=== PATIENT | female | born 1950 | race African-American/Black ===

== ENCOUNTER 2019-06-01 15:17 | Inpatient (IN) ==
[2019-06-01] MEDS ORDERED: Ipratropium/Albuterol Neb 3 ML IH PRN (15:27)
[2019-06-01] MEDS ORDERED: Ondansetron ODT 4 MG TAB.RAPDIS PO PRN (15:27)
[2019-06-01] MEDS ORDERED: Menthol 9.1 MG LOZENGE PO PRN (15:27)
[2019-06-01] MEDS: *HR* FentaNYL PATCH 75 MCG PATCH TD SCH (18:52)
[2019-06-01] MEDS: Acetaminophen 325 MG TABLET PO PRN (18:53)
[2019-06-01] MEDS: Magnesium Oxide 400 MG TABLET PO SCH (21:58)
[2019-06-01] MEDS: Mirtazapine 15 MG TABLET PO SCH (21:58)
[2019-06-01] MEDS: Gabapentin 300 MG CAPSULE PO SCH (21:58)
[2019-06-02 07:06] LABS: Basophils % 0.5 %; Eosinophils # 0.3 K/mcL (0.0-0.6); Eosinophils % 4.7 %; Hematocrit 26.3 % (35.3-44.9); Hemoglobin 8.3 g/dL (11.5-15.4); Lymphocytes # 0.7 K/mcL (0.6-4.6); Mean Corpuscular HGB Conc 31.6 g/dL (31.6-35.5); Mean Corpuscular Hemoglobin 29.5 pg (28.0-33.3); Mean Corpuscular Volume 93.6 fL (83.0-100.0); Mean Platelet Volume 10.3 fL (9.4-12.4); Monocytes # 0.5 K/mcL (0.0-1.3); Monocytes % 7.7 %; Neutrophils # 4.5 K/mcL (1.6-8.9); Nucleated Red Blood Cells 0.5 /100 WBC (0); Platelet Count 143 K/mcL (140-400); Red Blood Count 2.81 M/mcL (3.82-4.97); Segmented Neutrophils % 72.1 %; White Blood Count 6.2 K/mcL (4.3-11.1)
[2019-06-02 07:29] LABS: BUN/Creatinine Ratio 26 (6-26); Blood Urea Nitrogen 21 mg/dL (8-23); Calcium 7.7 mg/dL (8.6-10.3); Carbon Dioxide 27 mEq/L (23-29); Chloride 101 mEq/L (98-107); Glucose 88 mg/dL (70-105); Osmolality,Calculated 284 (280-300); Potassium 4.3 mEq/L (3.5-5.1); Sodium 136 mEq/L (136-145); eGFR For African Americans > 60 (> 60); eGFR For Non-African Americans > 60 (> 60)
[2019-06-02] MEDS: Acetaminophen 325 MG TABLET PO PRN ×2 (10:20→19:54)
[2019-06-02] MEDS: Gabapentin 300 MG CAPSULE PO SCH ×2 (10:20→19:52)
[2019-06-02] MEDS: Magnesium Oxide 400 MG TABLET PO SCH ×2 (10:20→19:52)
[2019-06-02] MEDS: Mirtazapine 15 MG TABLET PO SCH (19:52)
[2019-06-03] MEDS: *HR* OxyCODONE Immed Rel 5 MG TABLET PO PRN ×2 (10:18→15:16)
[2019-06-03] MEDS: Gabapentin 300 MG CAPSULE PO SCH ×2 (10:18→20:28)
[2019-06-03] MEDS: Magnesium Oxide 400 MG TABLET PO SCH ×2 (10:20→20:29)
[2019-06-03] MEDS: Acetaminophen 325 MG TABLET PO PRN ×2 (13:07→20:29)
[2019-06-03] MEDS: Mirtazapine 15 MG TABLET PO SCH (20:29)
[2019-06-04 06:51] VITALS: BP 94/60
[2019-06-04] MEDS: *HR* OxyCODONE Immed Rel 5 MG TABLET PO PRN ×3 (08:29→18:26)
[2019-06-04] MEDS: Magnesium Oxide 400 MG TABLET PO SCH (08:29)
[2019-06-04] MEDS: Gabapentin 300 MG CAPSULE PO SCH (08:30)
[2019-06-04] MEDS: Acetaminophen 325 MG TABLET PO PRN (11:58)
[2019-06-04] MEDS ORDERED: *HR* FentaNYL PATCH 100 MCG PATCH TD SCH (16:00)
[2019-06-04] MEDS: *HR* FentaNYL PATCH 75 MCG PATCH TD SCH (16:06)
== END 2019-06-04 18:51 | disposition other institution (70) | DRG 945 ==
LOC: INPPIK 15:34
PROVIDERS: ADMIT Family Medicine; ATTEND Family Medicine

== ENCOUNTER 2019-06-14 14:41 | Inpatient (IN) ==
[2019-06-14] MEDS ORDERED: Morphine Sulfate Immed Rel 15 MG TABLET PO PRN (15:31)
[2019-06-14] MEDS ORDERED: *HR* Methadone 10 MG TABLET PO SCH (17:00)
[2019-06-14] MEDS: OLANZapine 10 MG TAB.RAPDIS PO SCH (20:06)
[2019-06-14] MEDS: Acetaminophen 325 MG TABLET PO SCH (20:06)
[2019-06-14] MEDS: Melatonin 3 MG TABLET PO SCH (20:07)
[2019-06-14] MEDS ORDERED: dexAMETHasone 4 MG TABLET PO SCH (21:00)
[2019-06-14] MEDS: *HR* Methadone 10 MG TABLET PO SCH (21:43)
[2019-06-15] MEDS: *HR* Methadone 10 MG TABLET PO SCH ×3 (06:30→21:18)
[2019-06-15] MEDS: Acetaminophen 325 MG TABLET PO SCH ×3 (08:14→20:09)
[2019-06-15] MEDS: Methylphenidate HCl 5 MG TABLET PO SCH ×2 (08:15→13:34)
[2019-06-15] MEDS: dexAMETHasone 4 MG TABLET PO SCH ×2 (08:15→14:18)
[2019-06-15] MEDS ORDERED: Morphine Sulfate Oral CONC 10 MG/0.5 ML ORAL.SYG PO PRN (08:21)
[2019-06-15] MEDS: Ondansetron ODT 4 MG TAB.RAPDIS PO PRN (09:21)
[2019-06-15] MEDS: Morphine Sulfate Oral CONC 10 MG/0.5 ML ORAL.SYG PO PRN ×2 (09:26→17:40)
[2019-06-15 13:51] LABS: Basophils % 0.1 %; Eosinophils % 0.1 %; Hematocrit 26.6 % (35.3-44.9); Hemoglobin 8.5 g/dL (11.5-15.4); Immature Granulocytes % 3.7 % (0-4); Lymphocytes # 0.2 K/mcL (0.6-4.6); Lymphocytes % 1.9 %; Mean Corpuscular Hemoglobin 28.2 pg (28.0-33.3); Mean Corpuscular Volume 88.4 fL (83.0-100.0); Mean Platelet Volume 10.8 fL (9.4-12.4); Monocytes # 0.5 K/mcL (0.0-1.3); Neutrophils # 9.2 K/mcL (1.6-8.9); Nucleated Red Blood Cells 0.3 /100 WBC (0); Platelet Count 144 K/mcL (140-400); Red Blood Count 3.01 M/mcL (3.82-4.97); Red Cell Distribution Width 17.6 % (11.5-14.5); Segmented Neutrophils % 89.2 %; White Blood Count 10.3 K/mcL (4.3-11.1)
[2019-06-15 14:05] LABS: BUN/Creatinine Ratio 31 (6-26); Blood Urea Nitrogen 15 mg/dL (8-23); Calcium 7.4 mg/dL (8.6-10.3); Carbon Dioxide 23 mEq/L (23-29); Chloride 107 mEq/L (98-107); Glucose 115 mg/dL (70-105); Osmolality,Calculated 286 (280-300); Potassium 3.4 mEq/L (3.5-5.1); Sodium 137 mEq/L (136-145); eGFR For African Americans > 60 (> 60); eGFR For Non-African Americans > 60 (> 60)
[2019-06-15] MEDS: Melatonin 3 MG TABLET PO SCH (20:09)
[2019-06-15] MEDS: OLANZapine 10 MG TAB.RAPDIS PO SCH (20:09)
[2019-06-16] MEDS: *HR* Methadone 10 MG TABLET PO SCH ×3 (06:45→22:09)
[2019-06-16] MEDS: Methylphenidate HCl 5 MG TABLET PO SCH ×2 (09:10→13:02)
[2019-06-16] MEDS: Acetaminophen 325 MG TABLET PO SCH ×3 (09:10→22:07)
[2019-06-16] MEDS: dexAMETHasone 4 MG TABLET PO SCH ×2 (09:12→13:02)
[2019-06-16 16:39] LABS: Bilirubin,Urine Small (Negative); Blood,Urine Large (Negative); Clarity,Urine Cloudy (Clear); Color,Urine Amber (Yellow); Glucose,Urine (UA) Normal (Normal); Ketones,Urine Negative (Negative); Leukocyte Esterase,Urine Moderate (Negative); Nitrite,Urine Positive (Negative); Protein,Urine 100 mg/dL (Neg-Trace); Specific Gravity,Urine 1.025 (1.010-1.025); Urobilinogen,Urine Normal (Normal)
[2019-06-16 16:47] LABS: Bacteria,Urine Moderate per hpf (None-Few); Mucus,Urine Few per lpf (Few); RBC,Urine TNTC per hpf (0-3); Squamous Epithelial Cell,Urine Few per lpf (None-Few); WBC,Urine TNTC per hpf (0-3); Yeast,Urine Few per hpf (None Seen)
[2019-06-16 18:27] LABS: Hematocrit 25.3 % (35.3-44.9); Hemoglobin 8.1 g/dL (11.5-15.4)
[2019-06-16] MEDS: Melatonin 3 MG TABLET PO SCH (22:07)
[2019-06-16] MEDS: OLANZapine 10 MG TAB.RAPDIS PO SCH (22:09)
[2019-06-17] MEDS: *HR* Methadone 10 MG TABLET PO SCH ×3 (05:09→21:38)
[2019-06-17] MEDS ORDERED: cefTRIAXone 1,000 MG in Water for inj. (sterile) 10 ML IVPB SCH (09:00)
[2019-06-17] MEDS: Acetaminophen 325 MG TABLET PO SCH ×3 (09:01→21:38)
[2019-06-17] MEDS: dexAMETHasone 4 MG TABLET PO SCH ×2 (09:07→14:58)
[2019-06-17] MEDS: Methylphenidate HCl 5 MG TABLET PO SCH ×2 (09:07→11:54)
[2019-06-17] MEDS ORDERED: 0.9 % Sodium Chloride 1,000 ML IVC SCH (10:30)
[2019-06-17] MEDS: Ondansetron ODT 4 MG TAB.RAPDIS PO PRN (12:13)
[2019-06-17] MEDS ORDERED: *HR* Promethazine 25 MG/ML VIAL IVP PRN (14:00)
[2019-06-17] MEDS: Morphine Sulfate Oral CONC 10 MG/0.5 ML ORAL.SYG PO PRN (17:47)
[2019-06-17] MEDS: Melatonin 3 MG TABLET PO SCH (21:38)
[2019-06-17] MEDS: OLANZapine 10 MG TAB.RAPDIS PO SCH (21:39)
[2019-06-18] MEDS: *HR* Methadone 10 MG TABLET PO SCH ×3 (05:32→22:07)
[2019-06-18 05:46] LABS: Hematocrit 26.2 % (35.3-44.9); Hemoglobin 8.1 g/dL (11.5-15.4); Mean Corpuscular HGB Conc 30.9 g/dL (31.6-35.5); Mean Corpuscular Hemoglobin 27.8 pg (28.0-33.3); Mean Platelet Volume 10.3 fL (9.4-12.4); Red Blood Count 2.91 M/mcL (3.82-4.97); Red Cell Distribution Width 18.2 % (11.5-14.5); White Blood Count 9.9 K/mcL (4.3-11.1)
[2019-06-18 05:52] LABS: Platelet Count 89 K/mcL (140-400)
[2019-06-18] MEDS: Acetaminophen 325 MG TABLET PO SCH ×3 (09:04→22:08)
[2019-06-18] MEDS: cefTRIAXone 1,000 MG in 0.9 % Sodium Chloride Mini Bag 100 ML IVPB SCH (09:17)
[2019-06-18] MEDS: dexAMETHasone 4 MG TABLET PO SCH ×2 (09:31→14:26)
[2019-06-18] MEDS: Methylphenidate HCl 5 MG TABLET PO SCH ×2 (09:31→12:31)
[2019-06-18] MEDS: Melatonin 3 MG TABLET PO SCH (22:08)
[2019-06-18] MEDS: OLANZapine 10 MG TAB.RAPDIS PO SCH (22:08)
[2019-06-18] MEDS: Ondansetron ODT 4 MG TAB.RAPDIS PO PRN (22:36)
[2019-06-19] MEDS: *HR* Methadone 10 MG TABLET PO SCH ×3 (06:36→22:33)
[2019-06-19] MEDS: cefTRIAXone 1,000 MG in 0.9 % Sodium Chloride Mini Bag 100 ML IVPB SCH (09:31)
[2019-06-19] MEDS: Morphine Sulfate Oral CONC 10 MG/0.5 ML ORAL.SYG PO PRN ×2 (09:32→14:49)
[2019-06-19] MEDS: Acetaminophen 325 MG TABLET PO SCH ×3 (09:33→22:31)
[2019-06-19] MEDS: Methylphenidate HCl 5 MG TABLET PO SCH ×2 (09:34→12:19)
[2019-06-19] MEDS: dexAMETHasone 4 MG TABLET PO SCH ×2 (09:34→14:44)
[2019-06-19] MEDS: OLANZapine 10 MG TAB.RAPDIS PO SCH (22:31)
[2019-06-19] MEDS: Melatonin 3 MG TABLET PO SCH (22:33)
[2019-06-20] MEDS: *HR* Methadone 10 MG TABLET PO SCH ×3 (05:47→21:28)
[2019-06-20] MEDS: Methylphenidate HCl 5 MG TABLET PO SCH ×2 (09:30→13:16)
[2019-06-20] MEDS: cefTRIAXone 1,000 MG in 0.9 % Sodium Chloride Mini Bag 100 ML IVPB SCH (09:30)
[2019-06-20] MEDS: dexAMETHasone 4 MG TABLET PO SCH ×2 (09:31→13:16)
[2019-06-20] MEDS: Acetaminophen 325 MG TABLET PO SCH ×3 (09:31→21:27)
[2019-06-20] MEDS: Morphine Sulfate Oral CONC 10 MG/0.5 ML ORAL.SYG PO PRN ×2 (09:35→13:16)
[2019-06-20] MEDS: Melatonin 3 MG TABLET PO SCH (21:27)
[2019-06-20] MEDS: OLANZapine 10 MG TAB.RAPDIS PO SCH (21:28)
[2019-06-21] MEDS: *HR* Methadone 10 MG TABLET PO SCH ×3 (06:39→21:50)
[2019-06-21] MEDS: Acetaminophen 325 MG TABLET PO SCH ×3 (09:03→21:49)
[2019-06-21] MEDS: Methylphenidate HCl 5 MG TABLET PO SCH ×2 (09:03→12:30)
[2019-06-21] MEDS: cefTRIAXone 1,000 MG in 0.9 % Sodium Chloride Mini Bag 100 ML IVPB SCH (09:04)
[2019-06-21] MEDS: dexAMETHasone 4 MG TABLET PO SCH ×2 (12:31→19:38)
[2019-06-21] MEDS: Melatonin 3 MG TABLET PO SCH (21:49)
[2019-06-21] MEDS: OLANZapine 10 MG TAB.RAPDIS PO SCH (21:50)
[2019-06-22] MEDS: *HR* Methadone 10 MG TABLET PO SCH ×3 (05:54→21:24)
[2019-06-22] MEDS: Methylphenidate HCl 5 MG TABLET PO SCH ×2 (08:08→13:14)
[2019-06-22] MEDS: Acetaminophen 325 MG TABLET PO SCH ×3 (08:08→21:23)
[2019-06-22] MEDS: dexAMETHasone 4 MG TABLET PO SCH ×2 (08:08→16:09)
[2019-06-22] MEDS: cefTRIAXone 1,000 MG in 0.9 % Sodium Chloride Mini Bag 100 ML IVPB SCH (08:09)
[2019-06-22] MEDS: OLANZapine 10 MG TAB.RAPDIS PO SCH (21:22)
[2019-06-22] MEDS: Melatonin 3 MG TABLET PO SCH (21:22)
[2019-06-23] MEDS: *HR* Methadone 10 MG TABLET PO SCH ×3 (06:17→20:17)
[2019-06-23] MEDS: cefTRIAXone 1,000 MG in 0.9 % Sodium Chloride Mini Bag 100 ML IVPB SCH (09:59)
[2019-06-23] MEDS: Methylphenidate HCl 5 MG TABLET PO SCH ×2 (09:59→13:52)
[2019-06-23] MEDS: dexAMETHasone 4 MG TABLET PO SCH ×2 (10:00→13:51)
[2019-06-23] MEDS: Acetaminophen 325 MG TABLET PO SCH ×3 (10:00→20:17)
[2019-06-23] MEDS: Morphine Sulfate Oral CONC 10 MG/0.5 ML ORAL.SYG PO PRN ×2 (10:08→20:16)
[2019-06-23] MEDS: Melatonin 3 MG TABLET PO SCH (20:17)
[2019-06-23] MEDS: OLANZapine 10 MG TAB.RAPDIS PO SCH (20:17)
[2019-06-24] MEDS: cefTRIAXone 1,000 MG in 0.9 % Sodium Chloride Mini Bag 100 ML IVPB SCH (09:01)
[2019-06-24] MEDS: Methylphenidate HCl 5 MG TABLET PO SCH ×2 (09:03→12:59)
[2019-06-24] MEDS: *HR* Methadone 10 MG TABLET PO SCH ×3 (09:03→22:06)
[2019-06-24] MEDS: Acetaminophen 325 MG TABLET PO SCH ×3 (09:03→22:00)
[2019-06-24] MEDS: dexAMETHasone 4 MG TABLET PO SCH ×2 (09:11→15:03)
[2019-06-24] MEDS: Melatonin 3 MG TABLET PO SCH (21:59)
[2019-06-24] MEDS: OLANZapine 10 MG TAB.RAPDIS PO SCH (21:59)
[2019-06-25] MEDS: *HR* Methadone 10 MG TABLET PO SCH ×3 (06:53→21:18)
[2019-06-25 07:10] LABS: Hematocrit 27.4 % (35.3-44.9); Hemoglobin 8.6 g/dL (11.5-15.4); Mean Corpuscular HGB Conc 31.4 g/dL (31.6-35.5); Mean Corpuscular Hemoglobin 28.6 pg (28.0-33.3); Mean Platelet Volume 10.7 fL (9.4-12.4); Red Blood Count 3.01 M/mcL (3.82-4.97); Red Cell Distribution Width 19.8 % (11.5-14.5); White Blood Count 10.8 K/mcL (4.3-11.1)
[2019-06-25 07:45] LABS: BUN/Creatinine Ratio 26 (6-26); Blood Urea Nitrogen 15 mg/dL (8-23); Calcium 7.6 mg/dL (8.6-10.3); Carbon Dioxide 28 mEq/L (23-29); Chloride 105 mEq/L (98-107); Glucose 89 mg/dL (70-105); Osmolality,Calculated 288 (280-300); Potassium 3.4 mEq/L (3.5-5.1); Sodium 139 mEq/L (136-145); eGFR For African Americans > 60 (> 60); eGFR For Non-African Americans > 60 (> 60)
[2019-06-25 07:56] LABS: Platelet Count 91 K/mcL (140-400)
[2019-06-25] MEDS ORDERED: Potassium Chloride Elixir 20 MEQ/15 ML UDC PO ONE (09:44)
[2019-06-25] MEDS: cefTRIAXone 1,000 MG in 0.9 % Sodium Chloride Mini Bag 100 ML IVPB SCH (10:02)
[2019-06-25] MEDS: Methylphenidate HCl 5 MG TABLET PO SCH ×2 (10:03→12:42)
[2019-06-25] MEDS: Acetaminophen 325 MG TABLET PO SCH ×3 (10:03→21:18)
[2019-06-25] MEDS: dexAMETHasone 4 MG TABLET PO SCH ×2 (10:08→16:17)
[2019-06-25] MEDS: Melatonin 3 MG TABLET PO SCH (21:18)
[2019-06-25] MEDS: OLANZapine 10 MG TAB.RAPDIS PO SCH (21:18)
[2019-06-26] MEDS: *HR* Methadone 10 MG TABLET PO SCH ×3 (06:43→20:28)
[2019-06-26] MEDS: cefTRIAXone 1,000 MG in 0.9 % Sodium Chloride Mini Bag 100 ML IVPB SCH (08:08)
[2019-06-26] MEDS: Acetaminophen 325 MG TABLET PO SCH ×3 (08:09→20:29)
[2019-06-26] MEDS: dexAMETHasone 4 MG TABLET PO SCH ×2 (08:09→14:29)
[2019-06-26] MEDS: Methylphenidate HCl 5 MG TABLET PO SCH ×2 (08:16→11:39)
[2019-06-26] MEDS: Melatonin 3 MG TABLET PO SCH (20:29)
[2019-06-26] MEDS: OLANZapine 10 MG TAB.RAPDIS PO SCH (20:29)
[2019-06-27] MEDS: *HR* Methadone 10 MG TABLET PO SCH ×3 (05:57→21:25)
[2019-06-27] MEDS: cefTRIAXone 1,000 MG in 0.9 % Sodium Chloride Mini Bag 100 ML IVPB SCH (08:10)
[2019-06-27] MEDS: Methylphenidate HCl 5 MG TABLET PO SCH ×2 (08:10→12:23)
[2019-06-27] MEDS: Acetaminophen 325 MG TABLET PO SCH ×3 (08:11→21:25)
[2019-06-27] MEDS: dexAMETHasone 4 MG TABLET PO SCH ×2 (08:11→14:42)
[2019-06-27] MEDS: Sennosides 8.6 MG TABLET PO PRN (08:18)
[2019-06-27] MEDS: Melatonin 3 MG TABLET PO SCH (21:24)
[2019-06-27] MEDS: OLANZapine 10 MG TAB.RAPDIS PO SCH (21:25)
[2019-06-28] MEDS: *HR* Methadone 10 MG TABLET PO SCH ×3 (05:36→21:20)
[2019-06-28] MEDS ORDERED: Bisacodyl 10 MG RECTAL SUPPOSITORY RC PRN (07:28)
[2019-06-28] MEDS: cefTRIAXone 1,000 MG in 0.9 % Sodium Chloride Mini Bag 100 ML IVPB SCH (08:12)
[2019-06-28] MEDS: Megestrol Acetate 400 MG/10 ML UDC PO SCH (08:13)
[2019-06-28] MEDS: Acetaminophen 325 MG TABLET PO SCH ×3 (08:15→21:20)
[2019-06-28] MEDS: dexAMETHasone 4 MG TABLET PO SCH ×2 (08:16→16:43)
[2019-06-28] MEDS: Methylphenidate HCl 5 MG TABLET PO SCH ×2 (08:16→13:11)
[2019-06-28] MEDS: OLANZapine 10 MG TAB.RAPDIS PO SCH (21:19)
[2019-06-28] MEDS: Melatonin 3 MG TABLET PO SCH (21:20)
[2019-06-29] MEDS: cefTRIAXone 1,000 MG in 0.9 % Sodium Chloride Mini Bag 100 ML IVPB SCH (08:21)
[2019-06-29] MEDS: Megestrol Acetate 400 MG/10 ML UDC PO SCH (08:21)
[2019-06-29] MEDS: Acetaminophen 325 MG TABLET PO SCH ×3 (08:22→21:10)
[2019-06-29] MEDS: Methylphenidate HCl 5 MG TABLET PO SCH ×2 (11:25→13:16)
[2019-06-29] MEDS: dexAMETHasone 4 MG TABLET PO SCH ×2 (11:25→17:57)
[2019-06-29] MEDS: *HR* Methadone 10 MG TABLET PO SCH ×2 (13:17→21:10)
[2019-06-29] MEDS: OLANZapine 10 MG TAB.RAPDIS PO SCH (21:10)
[2019-06-29] MEDS: Melatonin 3 MG TABLET PO SCH (21:10)
[2019-06-30] MEDS: *HR* Methadone 10 MG TABLET PO SCH ×3 (06:37→21:09)
[2019-06-30 06:56] LABS: Hematocrit 27.8 % (35.3-44.9); Hemoglobin 8.7 g/dL (11.5-15.4); Mean Corpuscular HGB Conc 31.3 g/dL (31.6-35.5); Mean Corpuscular Hemoglobin 29.2 pg (28.0-33.3); Mean Corpuscular Volume 93.3 fL (83.0-100.0); Red Blood Count 2.98 M/mcL (3.82-4.97); Red Cell Distribution Width 20.7 % (11.5-14.5)
[2019-06-30 07:19] LABS: Platelet Count 72 K/mcL (140-400)
[2019-06-30 07:52] LABS: BUN/Creatinine Ratio 35 (6-26); Blood Urea Nitrogen 19 mg/dL (8-23); Calcium 7.7 mg/dL (8.6-10.3); Carbon Dioxide 27 mEq/L (23-29); Chloride 106 mEq/L (98-107); Glucose 84 mg/dL (70-105); Osmolality,Calculated 295 (280-300); Potassium 3.4 mEq/L (3.5-5.1); Sodium 142 mEq/L (136-145); eGFR For African Americans > 60 (> 60); eGFR For Non-African Americans > 60 (> 60)
[2019-06-30] MEDS: ALPRAZolam 0.25 MG TABLET PO SCH (08:59)
[2019-06-30] MEDS: Megestrol Acetate 400 MG/10 ML UDC PO SCH (08:59)
[2019-06-30] MEDS: Methylphenidate HCl 5 MG TABLET PO SCH ×2 (08:59→12:28)
[2019-06-30] MEDS: Acetaminophen 325 MG TABLET PO SCH ×3 (08:59→21:10)
[2019-06-30] MEDS: dexAMETHasone 4 MG TABLET PO SCH ×2 (09:03→14:08)
[2019-06-30] MEDS: OLANZapine 10 MG TAB.RAPDIS PO SCH (21:10)
[2019-06-30] MEDS: Melatonin 3 MG TABLET PO SCH (21:10)
[2019-07-01] MEDS: *HR* Methadone 10 MG TABLET PO SCH ×3 (06:06→21:21)
[2019-07-01] MEDS: Megestrol Acetate 400 MG/10 ML UDC PO SCH (09:39)
[2019-07-01] MEDS: dexAMETHasone 4 MG TABLET PO SCH ×2 (09:39→13:31)
[2019-07-01] MEDS: Acetaminophen 325 MG TABLET PO SCH ×3 (09:40→21:21)
[2019-07-01] MEDS: Methylphenidate HCl 5 MG TABLET PO SCH ×2 (09:40→13:31)
[2019-07-01] MEDS: ALPRAZolam 0.25 MG TABLET PO SCH (09:48)
[2019-07-01] MEDS: Sennosides 8.6 MG TABLET PO PRN (09:48)
[2019-07-01] MEDS: Melatonin 3 MG TABLET PO SCH (21:22)
[2019-07-01] MEDS: OLANZapine 10 MG TAB.RAPDIS PO SCH (21:22)
[2019-07-02] MEDS: *HR* Methadone 10 MG TABLET PO SCH ×3 (05:55→22:48)
[2019-07-02] MEDS: Acetaminophen 325 MG TABLET PO SCH ×3 (08:11→21:03)
[2019-07-02] MEDS: Methylphenidate HCl 5 MG TABLET PO SCH ×2 (08:11→12:22)
[2019-07-02] MEDS: ALPRAZolam 0.25 MG TABLET PO SCH (08:12)
[2019-07-02] MEDS: Megestrol Acetate 400 MG/10 ML UDC PO SCH (08:12)
[2019-07-02] MEDS: Sennosides 8.6 MG TABLET PO PRN (08:12)
[2019-07-02] MEDS: dexAMETHasone 4 MG TABLET PO SCH ×2 (08:15→16:22)
[2019-07-02] MEDS: Melatonin 3 MG TABLET PO SCH (21:03)
[2019-07-02] MEDS: OLANZapine 10 MG TAB.RAPDIS PO SCH (21:03)
[2019-07-03] MEDS: *HR* Methadone 10 MG TABLET PO SCH ×3 (05:26→21:26)
[2019-07-03] MEDS: Acetaminophen 325 MG TABLET PO SCH ×3 (09:53→21:26)
[2019-07-03] MEDS: dexAMETHasone 4 MG TABLET PO SCH ×2 (09:55→19:25)
[2019-07-03] MEDS: Methylphenidate HCl 5 MG TABLET PO SCH ×2 (09:55→13:44)
[2019-07-03] MEDS: Megestrol Acetate 400 MG/10 ML UDC PO SCH (09:56)
[2019-07-03] MEDS: ALPRAZolam 0.25 MG TABLET PO SCH (10:34)
[2019-07-03] MEDS: OLANZapine 10 MG TAB.RAPDIS PO SCH (21:25)
[2019-07-03] MEDS: Melatonin 3 MG TABLET PO SCH (21:26)
[2019-07-04] MEDS: *HR* Methadone 10 MG TABLET PO SCH (04:41)
[2019-07-04 04:46] VITALS: BP 160/85
== END 2019-07-04 17:40 | disposition short-term general hospital (02) | DRG 945 ==
LOC: SUATTDRO 18:11 → INPPIK 18:11
PROVIDERS: ADMIT Emergency Medicine; ATTEND Family Medicine